=== PATIENT | female | born 2000 | race African-American/Black ===

== ENCOUNTER → 2022-05-02 | Emergency (ER) | payer MEDICAID ==
[~2022-05-02] VITALS: Ht 165.1 cm; Wt 81.3 kg
[2022-05-03 00:17] VITALS: BP 117/81
== END | disposition left against medical advice (07) ==
LOC: ER 22:55
DX: N76.4 Abscess of vulva (principal); Z53.21 Procedure and treatment not carried out due to patient leaving prior to being seen by health care provider